=== PATIENT | male | born 1950 | race Caucasian/White ===

== ENCOUNTER 2016-08-09 15:06 | Emergency (ER) | payer MEDICARE, OTHER ==
[~2016-08-09] VITALS: Ht 177.8 cm; Wt 86.4 kg
[~2016-08-09 15:06] MED LIST: ATEN50TA7 PO; CARB1TAB PO; FES300 PO; KLO5 PO; RASA1TAB PO; ROPI1TAB2 PO; ROPI4TAB PO; [UNRECOGNIZED DRUG - OTHER] PO
[2016-08-09 15:11] VITALS: BP 161/102; PULSE 90; RESP 16; O2SAT 96
--- NOTE | 2016-08-09 15:57 | ED.REPORT ---
HPI-General Illness Date of Service Aug 09, 2016 ED Provider: Noel Rojas MD A 65 year old male with a history of Parkinson's disease, proximal atrial flutter, TIA, valvular heart disease, and brain stimulator implant surgery presents to the ED complaining of weakness. The pt exerted himself for the last two days working in the [employer]. While working today, he began to feel weak and lightheaded. He felt better after sitting down. The pt denies chest pain or abnormal shortness of breath. His symptoms today are similar to those he was seen for in 06/2106. Nursing Notes Stated Complaint: WEAKNESS Chief Complaint: General Complaint Nursing Notes Reviewed: Yes Allergies: Coded Allergies: alcohol (Verified Allergy, Severe, VISION CHANGES, 08/09/16) meperidine (Verified Allergy, Severe, CAN INTERFERE W/ [facility], ) Uncoded Allergies: PICKELING JUICE (Allergy, Mild, Ringing in ears, 06/26/16) DAIRY (Allergy, Unknown, 06/26/16) Scheduled Atenolol-Expunged Drug, Do Not Renew! (Atenolol-Expunged Drug, Do Not Renew!) 50 Mg Tablet 50 MG PO DAILY Carbidopa/Levodopa-Expunged, Do Not Renew! (Carbidopa-Levo 25/100-Expunged, Do Not Renew!) 1 Tab Tablet 1.5 TAB PO 3XD Carbidopa/Levodopa-Expunged, Do Not Renew! (Sinemet-CR 60-669-[id number], Do Not Renew!) 1 Ea Tablet 1 TAB PO HS ClonazePAM-Expunged Drug, Do Not Renew! (ClonazePAM-Expunged Drug, Do Not Renew! ) 0.5 Mg Tablet 0.5 MG PO HS Ferrous Sulfate-Expunged Drug, Do Not Renew! (Feosol-Expunged Drug, Do Not Renew !) 325 Mg Tablet 325 MG PO DAILY Rasagiline Mesylate (Azilect) 1 Mg Tablet 1 MG PO HS Ropinirole Hcl-Expunged Drug, Do Not Renew! (Requip Xl-Expunged Drug, Do Not Renew!) 4 Mg Tab.sr.24h 8 MG PO DAILY Ropinirole-Expunged Drug, Do Not Renew! (Requip-Expunged Drug, Do Not Renew!) 1 Mg Tab 2 MG PO DAILY General Time Seen by MD: 15:56 Chief Complaint Weakness Hx Obtained From: Patient, Spouse Arrived By: Walk-in Sudden in Onset?: Yes Onset Occurred: 1 - 4 hours ago Recent Healthcare: Recent doctor visit, Recent hospitalization Similar Sx Previous: Yes Past Medical History Past Medical History Parkinson's disease paroxysmal atrial flutter TIA dyslipidemia Valvular Heart Disease (aortic valve sclerosis) Past Surgical History Hernia repairs Brain stimulator implant surgery Reports: Inguinal hernia repair Smoking History Former Smoker Social History Alcohol Use: Denies alcohol use Drug Use: Denies drug use Other Social History: Good social support, , Local resident Ambulatory Status Independent Review of Systems Full Review of Systems Constitutional: Denies: Fever Respiratory: Reports: Shortness of breath (baseline), Denies: Non-productive cough Cardiovascular: Denies: Chest pain GI: Denies: Abdominal pain, Nausea, Vomiting Musculoskeletal: Denies: Back pain, Neck pain Skin: Denies Rash Neurologic: Reports: Lightheaded, Weakness Complete sys rev & neg: except as marked. Physical Exam Vital Signs Vital Signs Date Time Temp Pulse Resp B/P Pulse Ox O2 Delivery O2 Flow Rate FiO2 08/09/16 18:45 85 21 180/98 98 08/09/16 17:00 69 19 155/97 97 Room Air 08/09/16 16:25 92 14 154/3 98 08/09/16 16:25 92 14 154/63 98 08/09/16 16:20 69 18 142/89 97 08/09/16 15:11 36.6 90 16 161/102 96 Initial VS: Reviewed General/Constitutional: Awake, Alert Head / Eyes: Atraumatic, Normocephalic, PERRL, EOMI no facial droop or asymmetry ENT: Atraumatic, Airway patent, Mucous membranes moist Neck: Atraumatic, Supple, Full range of motion Respiratory / Chest: Atraumatic, Breath sounds NL, Breath sounds = bilat, No respiratory distress Cardiovascular: Heart rate NL, Regular rhythm soft systolic murmur Abdomen: Atraumatic, Soft, Non-tender Back: Atraumatic, Full range of motion Upper Extremities Upper Extremity / MS: Atraumatic, Full range of motion Lower Extremity / Pelvis / MS: Atraumatic, Full range of motion Skin: Atraumatic, Color NL, No rash, Warm, Dry Neurologic: Oriented X3, Speech NL, No motor deficits, No sensory deficits Psychiatric: Affect NL, Mood NL Interpretation & Diagnostics Lab Results Interpretation Result Diagram: 08/09/16 1614 08/09/16 1614 Test 08/09/16 16:14 08/09/16 16:23 08/09/16 17:01 White Blood Count 8.3th/mm3 (3.8-10.1) Red Blood Count 5.21mil/mm3 (4.40-5.80) Hemoglobin 16.5g/dL (13.8-17.2) Hematocrit 47.9% (41.0-50.0) Mean Corpuscular Volume 91.9fL (81-100) Mean Corpuscular Hemoglobin 31.7pg (27.0-35.0) Mean Corpuscular Hemoglobin Concent 34.4% (32.0-37.0) Red Cell Distribution Width 12.1% (12.3-15.4) Platelet Count 200bil/L (150-400) Neutrophils (%) (Auto) 69.5% (40-74) Lymphocytes (%) (Auto) 18.3% (14-46) Monocytes (%) (Auto) 10.7% (4-12) Eosinophils (%) (Auto) 1.2% (0-5) Basophils (%) (Auto) 0.1% (0-3) Sodium Level 139mEq/L (134-144) Potassium Level 4.7mEq/L (3.5-5.2) Chloride Level 101mEq/L (97-108) Carbon Dioxide Level 30mmol/L (18-29) Blood Urea Nitrogen 16mg/dL (8-27) Creatinine 0.81mg/dL (0.76-1.27) Estimat Glomerular Filtration Rate 101mL/min (>59) Glucose Level 110mg/dL (60-99) Calcium Level 9.0mg/dL (8.5-10.1) Magnesium Level 2.2mg/dL (1.6-2.6) Total Bilirubin 0.3mg/dL (0.0-1.2) Aspartate Amino Transf (AST/SGOT) 18U/L (0-50) Alanine Aminotransferase (ALT/SGPT) 5U/L (0-44) Alkaline Phosphatase 54U/L (25-160) Troponin T < 0.010ug/L (0.0-0.011) Pro-B-Type Natriuretic Peptide 147.2pg/mL (0-376) Total Protein 6.2g/dL (6.4-8.4) Albumin 3.9g/dL (3.4-5.0) Hold Sau[place] Top Tube Received (Received) Urine Color Yellow (YELLOW) Urine Appearance Clear (CLEAR,HAZY) Urine pH 7.0 (5.0-8.0) Urine Specific [place] 1.010 (1.003-1.035) Urine Protein Negativemg/dL (NEG,TRACE) Urine Glucose (UA) Negativemg/dL (NEGATIVE) Urine Ketones Negativemg/dL (NEGATIVE) Urine Occult Blood Negative (NEGATIVE) Urine Nitrite Negative (NEGATIVE) Urine Bilirubin Negative (NEGATIVE) Urine Urobilinogen Normalmg/dL (NORMAL) Urine Leukocyte Esterase Negative (NEGATIVE) Urine RBC 0-2/hpf (0-2) Urine WBC 0-5/hpf (0-5) Urine Epithelial Cells Occasional/hpf (NONE-MOD) Urine Crystals None seen (NONE SEEN) Urine Bacteria Few/hpf (NONE-FEW) Urine Hyaline Casts None/lpf (NONE) Urine Granular Casts None seen (NONE SEEN) Urine Waxy Casts None seen (NONE SEEN) Urine Red Blood Cell Casts None seen (NONE SEEN) Urine White Blood Cell Casts None seen (NONE SEEN) Urine Mucus None seen (None Seen) Urine Trichomonas None seen (NONE SEEN) Urine Yeast None (NONE SEEN) Urinalysis Comment None Urine Culture Reflexed Not indicated ECG Interpretation ECG Interpretation: normal sinus rhythm with a rate of 71 no acute change from previous dated 06/26/2016 artifact Time: 16:19 Interpreted by: ED physician Re-Eval/Medical Decision Source of Hx: Old records Time of Eval: 18:25 Patient Status: Condition improved Re-Evaluation/Progress Note: Pt rechecked, who is feeling well and prepared for discharge. Further physical examination is performed. Lab results and the plan for discharge are discussed. The pt understands and agrees with the plan. All questions are addressed at this time. Counseled Regarding: Diagnosis, Lab results, Need for follow-up, When/why to return to ED Discharge & Departure Primary Impression: Near syncope Disposition: Home Discharge Condition All VS Reviewed: Yes Condition: Stable Additional Instructions: Emergency Department evaluation included review, examination, labs and ECG. Prior records were reviewed. No serious cause for earlier symptoms is identified, it is likely that this was related to excessive fatigue. Blood pressure is a bit elevated at the end of the encounter however this is asymptomatic I believe that continuing previous medications at home is appropriate. Return to emergency department for chest pain shortness of breath or severe headache or fainting. Follow-up with primary-care blood pressure continues to be elevated on home readings. Follow-up with primary care next week if having continued episodes of feeling faint or fatigue. Referrals: Viki Vera MD (PCP) [place] Attestation Portions of this note were transcribed by Ko Davenport I, Dr. Rojas personally performed the history, physical exam and medical decision-making; I reviewed and confirmed the accuracy of the information in the transcribed note. Signed by: Ying Roy, 08/09/16 and 18:38. copies to: Viki Vera MD, Donald L MD Aug 09, 2016 15:56 KO DAVENPORT Aug 09, 2016 16:05
[2016-08-09 16:20] VITALS: BP 142/89; PULSE 69; RESP 18; O2SAT 97
[2016-08-09 16:25] VITALS: BP_SYST 154; BP_DIAS 3; BP_DIAS 63; PULSE 92; RESP 14; O2SAT 98
[2016-08-09 16:27] LABS: BASOPHILS % (AUTO) 0.1 % (0-3); EOSINOPHILS % (AUTO) 1.2 % (0-5); MONOCYTES % (AUTO) 10.7 % (4-12); Mean Corpuscular Hemoglobin 31.7 pg (27.0-35.0); Mean Corpuscular Volume 91.9 fL (81-100); NEUTROPHILS % (AUTO) 69.5 % (40-74); Platelet Count 200 bil/L (150-400)
[2016-08-09 17:00] VITALS: BP 155/97; PULSE 69; RESP 19; O2SAT 97
[2016-08-09 17:04] LABS: Magnesium 2.2 mg/dL (1.6-2.6)
[2016-08-09 17:06] LABS: TROPONIN T < 0.010 ug/L (0.0-0.011)
[2016-08-09 17:21] LABS: APPEARANCE,URINE CLEAR (CLEAR,HAZY); COLOR,URINE YELLOW (YELLOW); OCCULT BLOOD,URINE NEGATIVE (NEGATIVE); UROBILINOGEN,URINE NORMAL (NORMAL)
[2016-08-09 18:45] VITALS: BP 180/98; PULSE 85; RESP 21; O2SAT 98
== END 2016-08-09 18:47 | disposition home or self-care (01) ==
LOC: SED 16:05
DX: R55 Syncope and collapse (principal); R53.1 Weakness; R42 Dizziness and giddiness; X50.9XXA Other and unspecified overexertion or strenuous movements or postures, initial encounter; Y93.89 Activity, other specified; Y92.89 Other specified places as the place of occurrence of the external cause; Y99.8 Other external cause status; G20 Parkinson's disease; Z88.8 Allergy status to other drugs, medicaments and biological substances; Z87.891 Personal history of nicotine dependence; Z95.2 Presence of prosthetic heart valve; Z86.73 Personal history of transient ischemic attack (TIA), and cerebral infarction without residual deficits